=== PATIENT | female | born 1950 | race African-American/Black ===

== ENCOUNTER 2017-07-12 08:55 | Inpatient (IN) | payer BC, OTHER ==
[~2017-07-12] VITALS: Ht 162.6 cm; Wt 69.0 kg
--- NOTE | ~2017-07-12 | H ---
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 He brought her in and she was noted to have an elevated white count and workup ensued. She was diagnosed with pneumococcal meningitis. She was noted to have severe sepsis. She was on a ventilator for approximately a week with respiratory failure and improved, was able to be weaned off the ventilator. She was noted to have pneumonia. Continued on IV antibiotics. She had significant mental status changes with encephalopathy. She was on wrist restraints for a while. She had a code blue on 07/05/2017 when she had self-extubated herself while having a fluoroscopic-guided lumbar puncture. Overall, her mental status changes have started improving. She is on the IV antibiotics. She has had a significant decline as far as her functional mobility, ADL and cognition and has now been admitted for acute in-hospital inpatient rehabilitation. PAST MEDICAL HISTORY: Includes hypertension and exogenous obesity. HABITS: Occasional alcohol use on special occasions. ALLERGIES: PENICILLIN. SOCIAL HISTORY: Lives in a house with her . Premorbid community ambulator without gait aids. Works in a children's daycare. REVIEW OF SYSTEMS: No current complaints of chest pain, shortness of breath or abdominal discomfort. No complaints of extremity pain. PHYSICAL EXAMINATION: GENERAL: A 66-year-old pleasant, overweight -Belarusian female in no obvious distress. VITAL SIGNS: Last recorded temperature 36.7, pulse 78, respirations 20, blood pressure 160/83. NEUROLOGIC: The patient is pleasant, alert. There is a latency to her responses, but she can follow basic one step commands. HEENT: Facies appeared to be symmetric. EOMs are full. CHEST: Sounded clear to auscultation. CARDIOVASCULAR: Sounded regular rate and rhythm. ABDOMEN: Obese, bowel sounds positive, nontender. [facility] [address] [place] [address] HISTORY AND PHYSICAL Name: WILFRIDO FIELDS Room #: 514-P [facility] IN M.R.#: [id number] Admission: 07/12/17 Attend Phys: Eric Kyle MD Discharge: Date of : 54 Report #: [id number] GENITOURINARY AND RECTAL: Deferred. EXTREMITIES: She has functional range of motion of both upper extremities, strength is grade 4-/5. DTRs are trace to 1. Lower extremities functional range of motion with strength grade 4-/5. DTRs are trace to 1. She is transferring with contact guard assistance and needs min assist to ambulate short distances. She does have a delay in her cognitive processing and will tend to defer answers to her . ASSESSMENT: A 66-year-old -[place]ian female with the following problem list: 1. Encephalopathy. 2. Pneumococcal meningitis. 3. Severe sepsis. 4. Respiratory failure that has resolved. 5. Pneumonia. 6. Electrolyte abnormalities. 7. Generalized weakness and debilitation. PLAN: The patient is admitted for acute in-hospital inpatient rehabilitation. From a postadmission physician evaluation perspective, there are no relevant changes since the preadmission screening. Please see the above review of prior and current medical and functional conditions and comorbidities. Please see the patient's previous and current functional status. As far as risk of complications, the patient has multiple medical comorbidities as noted above. Initial plan of care involves the interdisciplinary acute inpatient rehabilitation program with the goal of maximizing the patient's functional independence, so that she can hopefully return back to her prior living situation. Measurable functional goals would be for her to become modified independent with transfers, mobility and ADLs, so that she can return back to the home setting as well as improved cognition. Prognosis is reasonably good with estimated length of stay, probably at least 10 days pending progress. Potential barriers would include her multiple medical comorbidities and decreased functional status. <ELECTRONICALLY SIGNED> By: Eric Kyle MD 07/13/17 1456 [id number] [id number] Eric Kyle MD /PMT
--- NOTE | ~2017-07-12 | PLAN ---
[facility] [place] [address] [place] [address] REHAB UNIT PLAN OF CARE Name: WILFRIDO FIELDS Room #: 514-P ADM IN M.R.#: [id number] Admission: 07/12/17 Attend Phys: Eric Kyle MD Discharge: Date of : 54 Report #: [id number] THIS REPORT FOR: //name// CC: Eric Kyle [facility] physician/PCP DATE OF SERVICE: 07/14/2017 HISTORY: The patient is seen back today in followup. She is in no distress. Last recorded temperature 37.1, pulse 82, respirations 19, blood pressure 137/71. She is alert. She still has mild cognitive deficits with some definite slowing in her responses. Her transfers are contact guard assistance. Gait was 250 feet min assist. Lower extremity dressing is min assist. Continues on the IV antibiotics. ASSESSMENT: 1. Encephalopathy. 2. Pneumococcal meningitis. 3. Severe sepsis, which is improved/resolved. 4. Respiratory failure has resolved. 5. Pneumonia. 6. Generalized weakness and debilitation. PLAN: The overall plan of care is based on the preadmission screen, post-admission physician evaluation and information garnered from therapy assessments. 1. Estimated length of stay is probably at least 7-10 days, pending progress. 2. Medical prognosis is reasonably good. 3. Anticipated interventions includes the interdisciplinary acute inpatient rehabilitation program with the goal of maximizing her functional independence, so she can return back to the home setting. 4. Anticipated functional outcomes would be for the patient to become modified independent with gait ideally without a device, independent with basic ADLs and improved cognition, so that she can return back home. 5. Discharge destination would be back home with her . 6. Expected therapy by discipline includes PT and OT and speech 1 hour per day each five days a week throughout the duration of the acute inpatient rehabilitation stay. The patient still has dysphagia and is on nectar thickened liquids. By: 0928 [id number] Eric Kyle MD /PMT
[~2017-07-12 08:55] MED LIST: LOSARTAN-HCTZ1 EACH PO; PROTONIX40 M1 PO
[2017-07-12] MEDS ORDERED: CEFTRIAXONE2 G1 IVPB (09:32)
[2017-07-12 11:02] VITALS: BP 160/83
[2017-07-12 20:14] VITALS: BP 137/68
[2017-07-13 07:13] LABS: HEMOGLOBIN 10.1 gm/dL (12.0-15.0); MCH 29.9 pg (26.0-34.0); MCHC 32.7 g/dL (28.0-37.0); MCV 91.7 fL (80.0-100.0); RBC 3.38 mil/uL (4.20-5.00); RDW 14.2 % (10.5-14.5); WBC 12.3 thou/uL (4.0-11.0)
[2017-07-13 07:24] LABS: CREATININE 0.7 mg/dL (0.6-1.0); POTASSIUM 4.1 mmol/L (3.5-5.1)
[2017-07-13 08:00] VITALS: BP 131/66
[2017-07-13 19:57] VITALS: BP 153/81
[2017-07-14 04:54] LABS: HEMATOCRIT 30.2 % (37.0-47.0); HEMOGLOBIN 9.8 gm/dL (12.0-15.0); MCH 29.8 pg (26.0-34.0); MCHC 32.3 g/dL (28.0-37.0); MCV 92.2 fL (80.0-100.0); PLATELET COUNT 328 thou/uL (150-400); RBC 3.28 mil/uL (4.20-5.00); RDW 14.7 % (10.5-14.5)
[2017-07-14 04:55] LABS: MANUAL DIFF YES
[2017-07-14 05:06] LABS: ALBUMIN 2.4 g/dL (3.4-5.0); CALCIUM 8.9 mg/dL (8.5-10.1); CREATININE 0.8 mg/dL (0.6-1.0); MAGNESIUM 1.8 mg/dL (1.8-2.4); POTASSIUM 3.7 mmol/L (3.5-5.1); TOTAL BILIRUBIN 0.2 mg/dL (<0.1-1.0); TOTAL PROTEIN 5.9 g/dL (6.4-8.2)
[2017-07-14 06:06] LABS: ABSOLUTE NEUTROPHILS 7.4 thou/uL (1.4-8.2); MYELOCYTES 2 %; TOTAL CELL COUNT 100
[2017-07-14 08:20] VITALS: BP 137/71
[2017-07-14 17:08] LABS: GLYCOHEMOGLOBIN (HGB A1C) 6.2 % (4.8-5.6)
[2017-07-14 20:00] VITALS: BP 154/71
[2017-07-15 05:40] LABS: ABSOLUTE NEUTROPHILS 5.9 thou/uL (1.4-8.2); BASOPHILS 1.3 % (0.0-2.0); HEMATOCRIT 30.4 % (37.0-47.0); HEMOGLOBIN 10.1 gm/dL (12.0-15.0); LYMPHOCYTES 31.5 % (24.0-44.0); MCH 30.4 pg (26.0-34.0); MCHC 33.1 g/dL (28.0-37.0); MCV 91.9 fL (80.0-100.0); PLATELET COUNT 327 thou/uL (150-400); POLYS 56.2 % (36.0-66.0); RDW 14.3 % (10.5-14.5); WBC 10.5 thou/uL (4.0-11.0)
[2017-07-15 05:46] LABS: MANUAL DIFF NO
[2017-07-15 05:57] LABS: CALCIUM 9.4 mg/dL (8.5-10.1); CREATININE 0.8 mg/dL (0.6-1.0); POTASSIUM 3.9 mmol/L (3.5-5.1)
[2017-07-15 07:30] VITALS: BP 132/69
[2017-07-15 20:10] VITALS: BP 145/77
[2017-07-16 06:32] LABS: ABSOLUTE NEUTROPHILS 5.6 thou/uL (1.4-8.2); BASOPHILS 1.7 % (0.0-2.0); EOSINOPHILS 0.9 % (0.0-3.0); HEMATOCRIT 31.4 % (37.0-47.0); HEMOGLOBIN 10.2 gm/dL (12.0-15.0); LYMPHOCYTES 28.7 % (24.0-44.0); MCH 30.2 pg (26.0-34.0); MCHC 32.6 g/dL (28.0-37.0); MCV 92.9 fL (80.0-100.0); MONOCYTES 9.9 % (1.0-8.0); PLATELET COUNT 330 thou/uL (150-400); POLYS 58.8 % (36.0-66.0); RBC 3.38 mil/uL (4.20-5.00); RDW 14.9 % (10.5-14.5); WBC 9.6 thou/uL (4.0-11.0)
[2017-07-16 06:36] LABS: MANUAL DIFF NO
[2017-07-16 06:41] LABS: CALCIUM 9.4 mg/dL (8.5-10.1); CREATININE 0.8 mg/dL (0.6-1.0)
[2017-07-16 20:00] VITALS: BP 180/90
[2017-07-16 20:02] VITALS: BP 133/75
[2017-07-17 06:14] LABS: ABSOLUTE NEUTROPHILS 5.8 thou/uL (1.4-8.2); EOSINOPHILS 1.2 % (0.0-3.0); HEMATOCRIT 32.1 % (37.0-47.0); HEMOGLOBIN 10.5 gm/dL (12.0-15.0); LYMPHOCYTES 27.4 % (24.0-44.0); MCH 30.2 pg (26.0-34.0); MCHC 32.6 g/dL (28.0-37.0); MCV 92.5 fL (80.0-100.0); MONOCYTES 8.9 % (1.0-8.0); PLATELET COUNT 326 thou/uL (150-400); POLYS 60.5 % (36.0-66.0); RBC 3.47 mil/uL (4.20-5.00); RDW 14.3 % (10.5-14.5); WBC 9.6 thou/uL (4.0-11.0)
[2017-07-17 06:15] LABS: MANUAL DIFF NO
[2017-07-17 08:15] VITALS: BP 134/73
[2017-07-17 20:35] VITALS: BP 130/66
[2017-07-18 08:20] VITALS: BP 120/74
[2017-07-18 20:10] VITALS: BP 150/73
[2017-07-19 06:27] LABS: ABSOLUTE NEUTROPHILS 4.2 thou/uL (1.4-8.2); BASOPHILS 0.5 % (0.0-2.0); EOSINOPHILS 1.9 % (0.0-3.0); HEMATOCRIT 32.2 % (37.0-47.0); HEMOGLOBIN 10.6 gm/dL (12.0-15.0); LYMPHOCYTES 34.1 % (24.0-44.0); MCH 30.4 pg (26.0-34.0); MCV 92.2 fL (80.0-100.0); MONOCYTES 7.6 % (1.0-8.0); PLATELET COUNT 297 thou/uL (150-400); POLYS 55.9 % (36.0-66.0); RDW 14.3 % (10.5-14.5); WBC 7.5 thou/uL (4.0-11.0)
[2017-07-19 06:31] LABS: MANUAL DIFF NO
[2017-07-19 06:37] LABS: CALCIUM 9.1 mg/dL (8.5-10.1); CREATININE 0.9 mg/dL (0.6-1.0); POTASSIUM 4.1 mmol/L (3.5-5.1)
[2017-07-19] MEDS ORDERED: COLACE100 MG PO (08:34)
[2017-07-19] MEDS ORDERED: CLARITIN10 MG PO (08:34)
[2017-07-19] MEDS ORDERED: FLONASE 0.05%50 MCG NASAL (08:34)
[2017-07-19] MEDS ORDERED: TYLENOL325 MG PO (08:34)
[2017-07-19] MEDS ORDERED: PROTONIX40 M1 PO (08:34)
[2017-07-19 08:40] VITALS: BP 128/78
[2017-07-19 10:36] VITALS: BP 150/73
[2017-07-19 11:15] VITALS: BP 150/73
[2017-07-19 11:56] VITALS: BP 150/73
== END 2017-07-19 11:50 | disposition home health service (06) | DRG 94 ==
LOC: ENTRNSPT 07-19 11:34 → EDTRNSPTSTS 07-19 11:37
PROVIDERS: Family Medicine; Nurse Practitioner; Physical Medicine & Rehabilitation; Specialist
DX: G00.1 Pneumococcal meningitis (principal); G93.40 Encephalopathy, unspecified; J18.9 Pneumonia, unspecified organism; J96.90 Respiratory failure, unspecified, unspecified whether with hypoxia or hypercapnia; H91.90 Unspecified hearing loss, unspecified ear; R53.81 Other malaise; I10 Essential (primary) hypertension; E66.09 Other obesity due to excess calories; E87.8 Other disorders of electrolyte and fluid balance, not elsewhere classified; R73.9 Hyperglycemia, unspecified; J30.2 Other seasonal allergic rhinitis; Z68.26 Body mass index [BMI] 26.0-26.9, adult; Z88.0 Allergy status to penicillin
CPT/HCPCS: 10112

== ENCOUNTER → 2017-08-15 | Outpatient (CLI) | payer OTHER ==
[~2017-08-15] MED LIST changes: +ASPIR 8181 MG PO; +CEFTRIAXONE2 G1 IVPB; +CLARITIN10 MG PO; +COLACE100 MG PO; +FLONASE 0.05%50 MCG NASAL; +TYLENOL325 MG PO
== END ==
LOC: RAD 08:48
DX: K21.9 Gastro-esophageal reflux disease without esophagitis (principal); R05 Cough; H90.3 Sensorineural hearing loss, bilateral; R49.0 Dysphonia; R09.89 Other specified symptoms and signs involving the circulatory and respiratory systems; Z91.89 Other specified personal risk factors, not elsewhere classified; Z86.61 Personal history of infections of the central nervous system

== ENCOUNTER 2018-11-12 05:46 | Inpatient (IN) | payer OTHER ==
[2018-11-12] VITALS (23 sets, daily range): BP systolic 139–176; BP diastolic 65–101
[~2018-11-12] VITALS: Ht 160 cm; Wt 73.5 kg
[2018-11-12 07:26] LABS: HEMATOCRIT 39.4 % (37.0-47.0); HEMOGLOBIN 13.2 gm/dL (12.0-15.0); MCH 30.3 pg (26.0-34.0); MCHC 33.4 g/dL (28.0-37.0); MCV 90.7 fL (80.0-100.0); PLATELET COUNT 235 thou/uL (150-400); RBC 4.35 mil/uL (4.20-5.00); RDW 13.2 % (10.5-14.5)
[2018-11-12 07:37] LABS: ANION GAP 16 mmol/L (7-16); BUN 19 mg/dL (7-18); CALCIUM 10.1 mg/dL (8.5-10.1); CHLORIDE 100 mmol/L (98-107); CO2 23 mmol/L (21-32); CREATININE 1.5 mg/dL (0.6-1.0); GLUCOSE 284 mg/dL (74-106); POTASSIUM 3.1 mmol/L (3.5-5.1); SODIUM 139 mmol/L (136-145)
[2018-11-12 07:38] LABS: URINE BILIRUBIN NEGATIVE (Negative); URINE BLOOD NEGATIVE (Negative); URINE CLARITY CLEAR; URINE COLOR YELLOW; URINE GLUCOSE-RANDOM* 1+ (Negative); URINE KETONES NEGATIVE (Negative); URINE LEUKOCYTES-REFLEX NEGATIVE (Negative); URINE NITRITE-REFLEX NEGATIVE (Negative); URINE PROTEIN (DIPSTICK) NEGATIVE (Negative); URINE UROBILINOGEN 0.2 E.U./dl (0.2-1.0)
[2018-11-12 07:46] LABS: ALBUMIN 3.9 g/dL (3.4-5.0); DIRECT BILIRUBIN < 0.1 mg/dL (<0.1-0.3); SGOT 17 U/L (15-37); SGPT 27 U/L (30-65); TOTAL BILIRUBIN 0.4 mg/dL (<0.1-1.0); TOTAL PROTEIN 7.5 g/dL (6.4-8.2); TROPONIN-I <0.06 ng/mL (<0.06)
[2018-11-12 07:56] LABS: AMP/METHAMP Negative (Negative); BARBITURATES Negative (Negative); BENZODIAZEPINES Negative (Negative); COCAINE Negative (Negative); METHADONE Negative (Negative); OPIATES Negative (Negative); PCP Negative (Negative)
[2018-11-12 08:02] LABS: ABSOLUTE NEUTROPHILS 27.2 thou/uL (1.4-8.2); ANISOCYTOSIS SLIGHT
[2018-11-12 10:11] LABS: APTT 30.3 Seconds (24.5-32.8); PROTIME 10.4 Seconds (9.3-11.4)
--- NOTE | 2018-11-12 11:45 | NUR ---
PT AN ADMIT RULE OUT MENINGITIS AND ALTERED MENTAL STATUS. CONSULTED INFECTIOUS DISEASE. BLOOD CULTURES OBTAINED AND ANTIBIOTICS TREATMENT STARTED TEMP IS 97.7. HISTORY OF MJ USE. REPORTS HEADACHE AND RESTLESS AND BROUGHT HER IN TO BE SEEN. HISTORY OF MENINGITIS APROXIMATELY A YEAR AGO HE REPORTS. MONSON TO DD. YELLOW URINE. VS STABLE. ON ROOM AIR . WENT DOWN FOR A SPINAL TAP BEFORE ICU ADMISSION STATUS. SPOUSE AT BEDSIDE AND PLAN OF CARE DISCUSSED WITH SPOUSE. WILL CONTINUE TO ASSESS AND MONITOR PER NURSING
[2018-11-12 11:50] LABS: CSF CLARITY CLOUDY; CSF COLOR PALE CREAM; VOLUME 6.5 ml
[2018-11-12 12:23] LABS: CSF RBC 3207 /mm3
[2018-11-12 12:27] LABS: CSF GLUCOSE < 1 mg/dL (40-70); CSF PROTEIN 718 mg/dL (15-45)
[2018-11-12 12:38] LABS: CSF EOSINOPHILS 0 %; CSF LYMPHOCYTES 13 %; CSF POLYS 81 %
[2018-11-12 12:41] LABS: CSF WBC 23359 /mm3 (0-10)
--- NOTE | 2018-11-12 17:05 | EKG ---
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: [facility] : 1950 Requested By: Alexandre Ann Order Number: [id number] MD: Chuck Ward Measurements Intervals [place] Rate: 84 P: 76 NC: 146 QRS: -15 QRSD: 78 T: 65 QT: 383 QTc: 453 Interpretive Statements Sinus rhythm Multiple premature complexes, vent & supraven Borderline left axis deviation Nonspecific ST and T wave abnormality Compared to ECG 08/03/2017 14:13:54 Ventricular and supraventricular complexes are now present Electronically Signed On 11-12-2018 17:04:56 CDT by Chuck Ward [email or web address] ��������������������������������������������� <ELECTRONICALLY SIGNED> ���������������������������������������� By: Chuck Ward MD, [facility] ��������������������������������������������� 11/12/18 1704 0655 0655 Chuck Ward MD, [facility] /EPI
[2018-11-12 17:07] LABS: CALCIUM 8.8 mg/dL (8.5-10.1); CREATININE 1.1 mg/dL (0.6-1.0); POTASSIUM 3.4 mmol/L (3.5-5.1)
--- NOTE | 2018-11-12 17:34 | NUR ---
CONSULTED TO PLACE PICC FOR A PATIENT NEEDING ACCESS. ON ARRIVAL PATIENT WAS EXTREMLY RESTLES AND UNABLE TO LAY STILL FOR PROCEDURE. NO NURSE AVAILABLE TO ASSIST. UNABLE TO PLACE PICC AT THAT TIME. PATIENT 1 HOUR LATER WAS GIVEN ATIVAN AND PICC WAS PLACED PER HOSPITAL POLICY AFTER A BEDSIDE TIMEOUT COMPLETED. PICC WAS TRIMMED TO 45CM AND ADVANCED WITHOUT DIFFICULTY LINE EXTERNAL WAS 3CM. A STAT CHEST XRAY CONFIRMED LINE TO BE IN GOOD POSITION. LINE RELEASED FOR USE.
--- NOTE | 2018-11-12 18:10 | NUR ---
PT IS ALERT BUT CONFUSED AND RESTLESS. HAS ATIVAN PRN FOR ANXIETY. REST AFTER MEDICATION GIVEN. BILATERAL WRIST RESTRAINTS. MONSON TO DD. LUNGS ARE CLEAR. FAMILY AT BEDSIDE FOR SUPPORT. VS STABLE SINUS RHYTHM ONT HE MONITOR. PICC LINE PLACED TODAY AND ANTIBIOTICS GIVEN ORDERED. ENT SEEN PT THIS EVENING. INFECTIOUS DISEASE SEEM PT REMAINS IN ISOLATION FOR MENINGITIS. WILL CONTINUE TO ASSESS AND MONITOR PER NURSING
[2018-11-13] VITALS (20 sets, daily range): BP systolic 115–161; BP diastolic 54–113
[2018-11-13 05:21] LABS: HEMATOCRIT 35.7 % (37.0-47.0); HEMOGLOBIN 12.1 gm/dL (12.0-15.0); MCH 30.6 pg (26.0-34.0); MCHC 33.7 g/dL (28.0-37.0); MCV 90.7 fL (80.0-100.0); PLATELET COUNT 195 thou/uL (150-400); RBC 3.94 mil/uL (4.20-5.00); RDW 13.5 % (10.5-14.5); WBC 35.8 thou/uL (4.0-11.0)
[2018-11-13 05:27] LABS: ALBUMIN 2.7 g/dL (3.4-5.0); CALCIUM 8.8 mg/dL (8.5-10.1); CREATININE 0.9 mg/dL (0.6-1.0); POTASSIUM 3.5 mmol/L (3.5-5.1); TOTAL BILIRUBIN 0.2 mg/dL (<0.1-1.0); TOTAL PROTEIN 6.4 g/dL (6.4-8.2)
--- NOTE | 2018-11-13 07:23 | NUR ---
PT OPENS HER EYES SPONTANEOUSLY WAS ABLE TO STATE HER NAME THIS MORNING BUT WITH SOME DIFFICULTY SPEAKING, PT APPEARS CONFUSED, AND IS OCCASIONALLY RESTLESS IN BED, PICKING ON LINES/CORDS, RESTRAINTS AND ISOLATION MAINTAINED. VITALS STABLE AND AFEBRILE. BLOOD SUGARS RANGING 150'S. PT NPO, IVF INFUSING, URINE OUTPUT ADEQUATE.
--- NOTE | 2018-11-13 14:15 | HC ---
[facility] [address] CONSULTATION Name: WILFRIDO FIELDS Room #: 243-P [facility] IN M.R.#: [id number] Admission: 11/12/18 ������������������ Attend Phys: Joshua Henry MD Discharge: ������������������ Date of : 54 Report #: [id number] THIS REPORT FOR: //name// CC: Ryanne Henry DATE OF SERVICE: 11/12/2018 INFECTIOUS DISEASES CONSULTATION REASON FOR CONSULTATION: Encephalopathy, leukocytosis, suspected meningitis. HISTORY OF PRESENT ILLNESS: The patient is a 68-year-old that presented to the Emergency Room early this morning with acute onset of headache, nausea, vomiting, which progressed to encephalopathy over about 5 hours. I treated her in June 2017 with strep pneumoniae meningitis. Imaging studies showed some chronic sinusitis changes, but no evidence of bony abnormality. After an extended hospital stay, she improved and was discharged to home and resumed her normal activities of daily living. Yesterday, she went out with her friends for [employer] and [employer]. When she came back, she was complaining of nausea, vomiting and headache. This persisted through the night and the patient became encephalopathic. Therefore, called EMS and she was brought into the Emergency Room. She has chronic sinus complaints and frequent upper respiratory tract infection symptoms. No persistent rhinorrhea. No chronic headaches. No recent pneumonias or other illness identified. She has had no travel. In 2017, her HIV was negative. Quantitative immunoglobulins were normal. The patient does use marijuana and drinks alcohol, but no other street drugs. She has had no trauma. No other surgical interventions. ALLERGIES: SULFA, PENICILLIN, tolerated cephalosporins. MEDICATIONS: Losartan and hydrochlorothiazide, Flonase. PAST MEDICAL AND SURGICAL HISTORY: Hypertension, cholecystectomy, sinus surgery, frequent upper respiratory tract infections, hysterectomy, meningitis. FAMILY HISTORY: Noncontributory. SOCIAL HISTORY: Smokes cigarettes, marijuana, weekly alcohol intake. No tuberculosis exposure or HIV risks. REVIEW OF SYSTEMS: The patient was unable to communicate. History was gleaned from her who noticed no rash or adenopathy. She has had no visual changes. There has been no cough or sputum production, chest pain, palpitations. No bloody emesis. No diarrhea. No abdominal pain. No dysuria or frequency, flank or back pain. A 10-point review of system was negative [address] [address] CONSULTATION Name: WILFRIDO FIELDS Room #: [facility] IN ..#: [id number] Admission: 11/12/18 ������������������ Attend Phys: Joshua Henry MD Discharge: ������������������ Date of : 54 Report #: [id number] other than what is described above. PHYSICAL EXAMINATION: VITAL SIGNS: The patient was in the Intensive Care Unit. Temp was 98.7, pulse 104, respiratory rate 20, blood pressure 156/68. She was with a nasal trumpet in her right naris. GENERAL: She was arousable, but would not converse. She moved all extremities. SKIN: Without rash or decubitus. No palpable adenopathy. HEENT: Eyes: Without scleral icterus. Mild conjunctivitis. Nasal trumpet in place on the right with no clear rhinorrhea identified. Mouth without mucositis. NECK: 1+ nuchal rigidity. No palpable masses or thyromegaly. Carotid pulses were normal. LUNGS: Clear. HEART: Regular, without murmur, gallop or rub. ABDOMEN: Mildly obese, soft, no hepatosplenomegaly or mass. No appreciable tenderness noted. She had positive bowel sounds. External genitalia without lesion and had indwelling Eldridge catheter. EXTREMITIES: Without clubbing, cyanosis or edema. Cranial nerves appeared intact. Strength in the upper and lower extremities appeared normal. Did not cooperate with exam any further than this. LABORATORY DATA: Hemoglobin 13.2; platelet count 235,000; white count 32,000 with 71% segs, 14% bands. Sedimentation rate was 15. INR 1. Lactate 5. Sodium 139, potassium 3.1, bicarbonate 23, creatinine is 1.5. AST 17, ALT 27, bilirubin and alk phos were normal. Urinalysis was negative. Urine drug screen with positive THC. Lumbar puncture, 8 mL of cloudy fluid. Await CSF examination. CT scan of the head was negative with paranasal sinuses and mastoid air cells unremarkable. Chest x-ray was clear. IMPRESSION: 1. A 68-year-old with suspected bacterial meningitis. With her history of previous sinus surgery, I would be concerned about a possible defect in the cribriform plate. After further discussion with the patient's , it was noted that there was concern about what he described as brain tissue, described pathologically at the time of surgery, but this he reports was further evaluated by consultative pathology report, which was negative. Seems less likely herpetic or cryptococcal infection. The patient has encephalitis, encephalopathy. 2. Hypertension. 3. Acute kidney injury. 4. Leukocytosis. RECOMMENDATION: We will continue with broad antibiotic coverage. Check blood [address] [place] [address] CONSULTATION Name: WILFRIDO FIELDS Room #: 243-P ADM IN M.R.#: [id number] Admission: 11/12/18 ������������������ Attend Phys: Joshua Henry MD Discharge: ������������������ Date of : 54 Report #: [id number] cultures. ENT evaluation. MRI scan, full ICU support, urine and CSF antigens, broad cultures, HSV PCR. ��������������������������������������������� <ELECTRONICALLY SIGNED> ���������������������������������������� By: Paul Choe MD ��������������������������������������������� 11/13/18 1415 1229 2308 Paul Choe MD /nt
--- NOTE | 2018-11-13 14:35 | HC ---
[facility] [place] [address] CONSULTATION Name: WILFRIDO FIELDS Room #: 243-P ADM IN M.R.#: [id number] Admission: 11/12/18 ������������������ Attend Phys: Joshua Henry MD Discharge: ������������������ Date of : 54 Report #: [id number] THIS REPORT FOR: //name// CC: Ryanne Henry DATE OF SERVICE: 11/12/2018 SURGEON: Jesus Leggett MD REASON FOR CONSULTATION: Meningitis, recurrent. HISTORY OF PRESENT ILLNESS: The patient is a 68-year-old black female admitted through the Emergency Department last evening after being out with her girlfriend. They had been eating tacos and drinking margaritas. She came home. Her was at home, and prior to this, she seemed to be in her normal state of health. At about 9:00 last evening, she was answering questions, but acted lethargic. She went to bed as normal, but when the woke up this morning, he noticed that she was disoriented and not answering basic questions and complaining of headache. The patient had been vomiting the previous night and had attributed this to the tacos and margaritas that she had for dinner. She was brought by EMS to the Emergency Department and then admitted with a clinical suspicion of meningitis. The patient had a similar presentation a year ago with altered mental status, fever and was diagnosed with streptococcal meningitis, these notes in the health record are reviewed. The patient was noted to have a significant leukocytosis. Drug screen positive for marijuana and a lumbar puncture was done. This showed cloudy CSF with a very high white count and elevated protein consistent with meningitis. In addition, her lactic acid was critically high at 5.0. The patient has had a CT of the head done, which I have reviewed personally today and compared to a previous CT done in June 2017. The CT done today showed no evidence of any mucosal thickening or air fluid level in the sinuses or mastoid. The brain parenchyma showed no significant mass effect or suspicious masses or evidence of encephalocele. Compared to a scan in June 2017, the previous mucosal thickening in the sinuses has cleared and these seem totally normal now. The patient has evidence of previous sinus surgery both on these films from June 2017 and 2018. The patient is pending an MRI of the brain. I was able to review a previous MRI of the head done without contrast from 2016. This was felt to be normal except for the findings of some mucoperiosteal thickening in the maxillary and ethmoid sinuses, slightly worse on the right, mastoids were clear at that exam. This seems improved from that examination. I was able to get history from the patient's sister and . The patient is known to me from a longstanding history of chronic sinusitis. She underwent endoscopic sinus surgery in September 2014, which [place] [address] CONSULTATION Name: WILFRIDO FIELDS Room #: 243-P [facility] IN M.R.#: [id number] Admission: 11/12/18 ������������������ Attend Phys: Joshua Henry MD Discharge: ������������������ Date of : 54 Report #: [id number] Otherwise, I do not have these records to review. PAST MEDICAL HISTORY: Significant for meningitis, pneumococcal sepsis, hypertension, history of laparoscopic cholecystectomy, history of chronic tobacco abuse, history of chronic marijuana use. MEDICATIONS: Reviewed through the electronic health record. ALLERGIES: INCLUDE SULFAMETHOXAZOLE AND PENICILLIN. FAMILY HISTORY: In discussion with her sister, she does not have any significant history of chronic otitis media as a child or adult. Family history is otherwise negative. SOCIAL HISTORY: She is with a supportive family. She is an every day smoker, about 1/2 a pack a day. She does use alcohol. She does use marijuana. REVIEW OF SYSTEMS: Cannot be obtained, the patient is not responsive. PHYSICAL EXAMINATION: GENERAL: Shows a well-developed, 68-year-old female, appearing her stated age. HEENT: Otologic exam shows some mild cerumen present I can see around this. Tympanic membranes appear pearly, intact with no evidence of middle ear effusion, erythema. There is no tenderness over the mastoid and no swelling. Nasal exam is dry, septum is in the midline. No evidence of polyposis. Oral cavity: The patient would not tolerate this. Limited examination was done with the tongue blade with apparent normal tongue and no swelling in floor of mouth. NECK: No adenopathy or other masses. ASSESSMENT: 1. 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 The patient has a history of chronic sinusitis and a history of previous sinus surgery. Concern in this scenario would always be for the source of infection through the skull base, either through the temporal bone or sinuses. Review of MRI and CT from [address] from this admission do not show any obvious infection. Ideally, the patient will be able to tolerate an MRI best done with contrast, if possible; however, the patient has some elevation of BUN and creatinine. This should be followed with a fine-cut CT axial and coronal of the skull base to include the temporal bone and sinuses to assess for any encephalocele or evidence of possible cerebrospinal fluid leak. This is a very difficult thing to identify and find. 2. Sepsis with elevated lactate dehydrogenase and leukocytosis, currently on aggressive support and antibiotics. 3. Acute kidney injury, limiting the ability to use contrast. 4. Hypokalemia. [facility] [place] [address] CONSULTATION Name: WILFRIDO FIELDS Room #: 243-P ADM IN M.R.#: [id number] Admission: 11/12/18 ������������������ Attend Phys: Joshua Henry MD Discharge: ������������������ Date of : 54 Report #: [id number] 5. Chronic tobacco abuse. 6. Chronic marijuana use. 7. Hypertension. 8. Gastroesophageal reflux disease. PLAN: 1. Deferral to the patient's ICU team and Infectious Disease on recommendations for antibiotics, cultures are pending from the CSF. 2. Aggressive workup to assess skull base for any evidence of encephalocele or meningocele. 3. The patient would not tolerate a more formal examination of the nose today due to non-cooperation. I appreciate the consultation. We will plan to follow along with you. ��������������������������������������������� <ELECTRONICALLY SIGNED> ���������������������������������������� By: Jesus Leggett MD ��������������������������������������������� 11/13/18 1435 1729 0105 Jesus Leggett MD /nt
[2018-11-13 15:24] LABS: HSV PCR SOURCE CSF
[2018-11-14] VITALS (19 sets, daily range): BP systolic 115–164; BP diastolic 54–84
--- NOTE | 2018-11-14 17:07 | NUR ---
PT ADMITTED RELATED TO BACTERIAL MENINGITIS. CM REVIEWED CHART AND SPOKE WITH CARE TEAM. CM MET WITH PT AND SPOUSE AT BEDSIDE THIS DAY. PT IS A&O X4. CM ROLE INTRODUCED. PT AND SPOUSE INDICATED THEY RESIDE IN A RAISED RANCH STYLE HOUSE WITH 7 STEPS TO ENTER AND 13 STEPS INSIDE. 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 PT AND SPOUSE INDICATED THAT PT HAD GONE TO 5N ACUTE INPATIENT REHAB IN THE PAST AND HAD DISHCARGE HOME WITH [facility]. THEY INDICATED THEY ANTICPATE PT RETURNING HOME ONCE MEDICALLY STABLE. CM TO FOLLOW INDICATED WITH DC PLANNING.
[2018-11-15] VITALS (15 sets, daily range): BP systolic 122–147; BP diastolic 53–81
[2018-11-15 04:27] LABS: POTASSIUM 3.9 mmol/L (3.5-5.1)
[2018-11-15 04:41] LABS: HEMATOCRIT 32.7 % (37.0-47.0); MCH 30.6 pg (26.0-34.0); MCHC 33.6 g/dL (28.0-37.0); MCV 91.2 fL (80.0-100.0); RBC 3.58 mil/uL (4.20-5.00); RDW 13.8 % (10.5-14.5)
[2018-11-15 04:55] LABS: WBC 15.6 thou/uL (4.0-11.0)
--- NOTE | 2018-11-15 05:34 | NUR ---
Pt remains stable in this shift. Resting well t/o the night. Report AUGUSTINE has been slightly better this am. HR was in in mid 40's to 50's when she sleeps. Denies of any CP or chest discomfort. Afebrile in this shift. Continue to make some progress toward goals.
[2018-11-15 18:05] LABS: HSV 1 DNA Negative (Negative); HSV 2 DNA Negative (Negative)
--- NOTE | 2018-11-15 18:11 | NUR ---
MED/SURG/TELE, VSS, UP TO THE CHAIR BUT A LITTLE UNSTEAD ON HER FEET. PT WILL SEE HER TOMORROW, A/OX4, SALINE LOVKED, MONSON REMOVED, CT TOMORROW, WILL CONTINUE TO MONITOR POC
--- NOTE | 2018-11-16 03:15 | NUR ---
ASSUMED CARE OF PATIENT AT 1900. VSS, AFEBRILE. UP TO CHAIR UNTIL READY FOR BED. C/O PICC BOTHERING HER, CXR OBTAINED TO CONFIRM PLACEMENT. IV ANTIBIOTICS INFUSED WITH NO ISSUES. VERY WEAK WHEN UP TO USE THE BSC. RESTING COMFORTABLY AT THIS TIME. PROGRESSING TOWARDS POC GOALS.
[2018-11-16 04:06] VITALS: BP 148/67
[2018-11-16 04:34] LABS: CALCIUM 8.2 mg/dL (8.5-10.1); POTASSIUM 3.7 mmol/L (3.5-5.1)
[2018-11-16 04:42] LABS: HEMATOCRIT 34.9 % (37.0-47.0); HEMOGLOBIN 11.6 gm/dL (12.0-15.0); MCH 30.1 pg (26.0-34.0); MCHC 33.2 g/dL (28.0-37.0); MCV 90.7 fL (80.0-100.0); RBC 3.85 mil/uL (4.20-5.00); RDW 13.4 % (10.5-14.5); WBC 13.5 thou/uL (4.0-11.0)
[2018-11-16 08:00] VITALS: BP 151/58
[2018-11-16 16:30] VITALS: BP 148/79
--- NOTE | 2018-11-16 17:36 | NUR ---
PT TRANSFERRED OUT OF ICU TO 3W RM 364. WORKED WITH THERAPIES TODAY AND NEEDS REHAB AT PRESENT. 5N ADMISSIONS SPOKE WITH PT AND KASHMIR'Nataliia AND PT AND SPOUSE AGREEABLE TO 5N STAY IF ABLE TO OBTAIN INSURANCE AUTH. 5N SUBMITTED AUTH REQUEST TODAY. WILL FOLLOW THAI PRITCHARD FOR APPROPRIATE LEVEL OF REHAB FOR DC.
--- NOTE | 2018-11-16 18:02 | NUR ---
PATIENT ALERT AND ORIENTED X4, NO COMPLAINTS OF PAIN. ON ROOM AIR. TOLERATING DIET. BLOOD SUGAR MONITORED. UP WITH MINIMAL ASSISTANCE TO THE COMMODE. NO SIGNS OF ACUTE DISTRESS NOTED AT THIS TIME. REPORT CALLED TO ONCOMING NURSE. PATIENT TRANSFERRED TO [facility].
--- NOTE | 2018-11-16 18:05 | NUR ---
Patient transferred from ICU room to room 364 this evening around 1730. Patient is alert and oriented x4, pleasant. Denies pain, nausea, SOA. SB on telemetry. Spouse at bedside with patient. Oriented to new room and call light. Encouraged to call before ambulating, verbalize understanding. Fall precautions in place. Patient currently eating dinner. No other complaints at this time. Continue to monitor.
[2018-11-16 19:47] VITALS: BP 161/76
[2018-11-16 20:22] VITALS: BP 161/76
[2018-11-17 04:39] VITALS: BP 167/71
--- NOTE | 2018-11-17 07:35 | NUR ---
Pt. has slept well during the night. Denies headache or any pain. Afebrile. No confusion . Tolerating room air well. Up with assist to bathroom. She calls appropriately. Bed alarm on for safety. Making progress towards care plan goals.
[2018-11-17 07:47] VITALS: BP 156/80
[2018-11-17 07:49] LABS: HEMATOCRIT 35.7 % (37.0-47.0); HEMOGLOBIN 11.8 gm/dL (12.0-15.0); MCH 30.2 pg (26.0-34.0); MCHC 33.1 g/dL (28.0-37.0); MCV 91.4 fL (80.0-100.0); RBC 3.91 mil/uL (4.20-5.00); RDW 13.4 % (10.5-14.5); WBC 16.4 thou/uL (4.0-11.0)
[2018-11-17 08:00] LABS: CALCIUM 8.5 mg/dL (8.5-10.1); CREATININE 0.9 mg/dL (0.6-1.0); POTASSIUM 3.9 mmol/L (3.5-5.1)
--- NOTE | 2018-11-17 15:11 | NUR ---
Assumed care of patient at 0700. Alert and oriented x4, forgetful at times. Vitals stable. Complaints of mild headache this morning, treated with Tylenol with good effect. Home medications restarted. Patient up with SBA and gait belt. Fall precautions in place. Calls appropriately. Sat up in chair this morning and most of afternoon. Now back in bed and sleeping. Spouse at bedside this afternoon. Right PICC line intact. Progressing towards POC. Will continue to monitor.
[2018-11-17 18:03] VITALS: BP 150/74
[2018-11-17 19:48] VITALS: BP 167/83
[2018-11-18 03:15] VITALS: BP 164/66
--- NOTE | 2018-11-18 04:31 | NUR ---
Pt. slept intermittently during the night. Denies any pain. Tolerating room air well. Up with assist to bathroom. Making progress towards care plan goals.
[2018-11-18 04:58] LABS: HEMATOCRIT 34.3 % (37.0-47.0); HEMOGLOBIN 11.6 gm/dL (12.0-15.0); MCH 30.4 pg (26.0-34.0); MCHC 33.8 g/dL (28.0-37.0); MCV 90.1 fL (80.0-100.0); PLATELET COUNT 232 thou/uL (150-400); RDW 13.3 % (10.5-14.5); WBC 16.9 thou/uL (4.0-11.0)
[2018-11-18 05:04] LABS: CALCIUM 8.2 mg/dL (8.5-10.1); MAGNESIUM 2.1 mg/dL (1.8-2.4)
[2018-11-18 05:45] LABS: ABSOLUTE NEUTROPHILS 13.5 thou/uL (1.4-8.2)
[2018-11-18 08:32] VITALS: BP 152/120
--- NOTE | 2018-11-18 16:01 | NUR ---
Assumed care of patient at 0700. BP high this morning, but received scheduled BP meds. Otherwise, VSS. Denies pain today. Alert and oriented x4. Pleasant. Up with SBA to bathroom. Voiding quantity sufficient. Up in chair most of shift. Sitting with lots of visitors and spouse at bedside throughout afternoon. Progressing towards POC. Will continue to monitor.
[2018-11-18 16:10] VITALS: BP 138/70
[2018-11-18 20:15] VITALS: BP 163/78
[2018-11-18 23:55] VITALS: BP 154/77
[2018-11-19 04:00] VITALS: BP 146/70
--- NOTE | 2018-11-19 06:17 | NUR ---
RESTING QUIETLY TONIGHT. SHE CALLS AP[facility] FOR ASSIST OUT OF BED. PROGRESSING TOWARD DISCHARGE GOALS. DENIES PAIN. CONTINUES ON IV ANTIBIOTICAS
[2018-11-19 07:56] VITALS: BP 155/73
--- NOTE | 2018-11-19 10:28 | NUR ---
Nutrition: pt admitted with bacterial meningitis and seen due to LOS. Chart reviewed. Pt voices eating very little of meals although observed she had ate most of her breakfast. Provided some food preferences to RD. Pt unsure of UBW. No weight loss over admit. Regular diet, explained how to order from alternative menu if desired. Pt voiced understanding. Consider low risk.
--- NOTE | 2018-11-19 15:39 | NUR ---
AAOX3 VERY PLEASANT AND COOPERATIVE. DENIES PAIN OR DISCOMFORT. UP TO BR WITH SBA WITH WALKER. VOIDS WITHOUT DIFFICULTY. GOOD APPETITE. SPOUSE AT BEDSIDE MOST OF DAY. RIGHT UPPER ARM TRIPLE LUMEN PICC INTACT WITH DRY DRESSING. REMAINS IN SR. RESP EVEN AND UNLABORED. GOOD COLOR. NO EDEMA.
--- NOTE | 2018-11-19 16:11 | NUR ---
ON-GOING ASSESSMENT: CM SPOKE WITH BEDSIDE RN WHO STATES SHE SPOKE WITH DR. FANG WHO STATES [facility] WOULD LIKE TO FOLLOW UP WITH PATIENT BUT AFTER SHE IS CLOSER TO BEING DONE WITH ANBX AND NOT LIKELY FOR ANOTHER 4-6 WEEKS. CM SPOKE WITH DR. HURA. MnaN STATING PATIENT IS TOO HIGH LEVEL FOR THEM AND RECOMMENDING HOME. CM DISCUSSED THIS WITH PATIENT AND THE NEED FOR HOME IV ANBX. PT REPORTS TO GO HOME WITH HH AND IV ANBX RATHER THEN DO OUTPATIENT INFUSION. CM DISCUSSED INFUSION COMPANIES AND PT DOES NOT HAVE A PREFERENCE. CM SENT REFERRAL TO [facility]. [facility] TO COME EVAL PATIENT AND CHECK INSURANCE COVERAGE. PT REPORTS SHE HAS HAD [facility] IN THE PAST AND PREFERS TO USE THEM AGAIN. PLANS ARE FOR PATIENT TO LIKELY DISCHARGE HOME TOMORROW ONCE INFUSION COMPANY CHECKS INSURANCE COVERAGE FOR HOME IV ANBX. CM WILL CONTINUE TO FOLLOW TO ASSIST NEEDED.
[2018-11-19 20:45] VITALS: BP 138/68
--- NOTE | 2018-11-19 22:00 | NUR ---
Denies pain. Tolerating room air well.Up with SBA to bathroom. Bed alarm on. Afebrile. PATTERN CHART WRITER called and got an order to [facility] tele and may transfer. Transferred to [facility] with all her belongings.
--- NOTE | 2018-11-19 23:09 | NUR ---
Assumed pt. care at 2230. Pt A&Ox4. Orientated to [facility]room 220. Denies pain or discomfort, at this time. No s/s of acute distress noted. Pt. assisted into bed, by this medical writer. Pt. sleeping w/ call light/desired belongings within reach. PO fluids encouraged. Will continue to monitor.
--- NOTE | 2018-11-20 05:22 | NUR ---
Assumed pt. care at 2230. Patient A&Ox4; Swallows meds whole w/o difficulty. Remains cont. B&B. Ambulates independently to bathroom w/ steady gait. Blood sugars WNL. Remains on IVABT; no adverse reactions noted. Triple lumen noted to RUE; flushed w/ NS w/o difficulty. Last BM 11/19/18, per pt. Patient has no c/o pain or discomfort. No s/s of acute distress noted. Patient asleep in bed w/ call light/desired belongings within reach. Po fluids encouraged. Will continue to monitor.
[2018-11-20 07:43] VITALS: BP 128/73
[2018-11-20 09:42] VITALS: BP 128/73
--- NOTE | 2018-11-20 09:50 | NUR ---
DISCHARGE NOTE: KIMBERLY reviewed chart and spoke with nursing. Discharge home is anticipated later today with HH and Home IV abx: ceftriaxone 2 gm IV BID. KIMBERLY notified by [facility] liaison that pt's copay is $165.55/week. KIMBERLY met with pt at bedside to discuss copay and discharge plan. Pt is agreeable with copay and discharge plan. Pt's PCP is Dr. Ryanne Gambino. Pt will need first dose at home this evening. KIMBERLY updated [facility] liaison, who will be onsite to provide education. Pt has PICC line in place. KIMBERLY notified intake at [facility] of anticipated discharge. Contact info for [facility] and [facility] placed in pt's discharge summary. KIMBERLY is following to finalize discharge plan.
--- NOTE | 2018-11-20 12:20 | NUR ---
ASSUMED CARE OF PATIENT THIS MORNING. PATIENT IS A&OX4. SHE GETS UP AD DIANE. SHE HAS A RIGHT UPPER ARM PICC TRIPLE LUMEN AND SHE HAS BEEN RECEIVING IV ANTIBIOTIC THERAPY. NO COMPLAINTS OF PAIN OR DISCOMFORT. SHE WILL BE DISCHARGING THIS AFTERNOON HOME WITH HOME HEALTH. PATIENT IS CURRENTLY SITTING IN ROOM WITH CALL LIGHT WITHIN REACH. SHE CALLS OUT APPROPRIATELY FOR ASSISTANCE.
[2018-11-20] MEDS ORDERED: CEFTRIAXON1 GM/50 ML IV (14:47)
--- NOTE | 2018-11-20 15:16 | NUR ---
PATIENT BEING DISCHARGED HOME WITH HOME HEALTH. PICC LINE LEFT IN. DISCHARGE INSTRUCTIONS REVIEWED WITH PATIENT AND VOLUNTEER TRANSPORT CAME TO TAKE PATIENT TO [facility] FOR DEPARTURE.
--- NOTE | 2018-11-20 15:20 | NUR ---
I AGREE WITH NURSING ASSESSMENT DONE BY AMALIA/HARDEEP.
== END 2018-11-20 15:22 | disposition home health service (06) | DRG 871 ==
LOC: ER 05:46 → EROBS 08:56 → ICU 08:56 → 3W 11-16 17:12 → SICU 11-19 23:05 → ENTRNSPT 11-20 15:06 → EDTRNSPTSTS 11-20 15:21 → SICU 11-20 15:22
PROVIDERS: Emergency Medicine; Nurse Practitioner Acute Care; Specialist; ADMIT Internal Medicine
PROC: 009U3ZX Drainage of Spinal Canal, Percutaneous Approach, Diagnostic (ICD-10-PCS; principal; 2018-11-12)
PROC: 02HV33Z Insertion of Infusion Device into Superior Vena Cava, Percutaneous Approach (ICD-10-PCS; principal; 2018-11-12)
PROC: B01B1ZZ Fluoroscopy of Spinal Cord using Low Osmolar Contrast (ICD-10-PCS; principal; 2018-11-12)
DX: A41.9 Sepsis, unspecified organism (principal); G92 Toxic encephalopathy; G04.2 Bacterial meningoencephalitis and meningomyelitis, not elsewhere classified; N17.9 Acute kidney failure, unspecified; Q01.8 Encephalocele of other sites; G97.82 Other postprocedural complications and disorders of nervous system; G96.0 Cerebrospinal fluid leak; I10 Essential (primary) hypertension; F12.90 Cannabis use, unspecified, uncomplicated; E87.6 Hypokalemia; K21.9 Gastro-esophageal reflux disease without esophagitis; F17.210 Nicotine dependence, cigarettes, uncomplicated; J32.9 Chronic sinusitis, unspecified; D72.823 Leukemoid reaction; E66.01 Morbid (severe) obesity due to excess calories; T38.0X5A Adverse effect of glucocorticoids and synthetic analogues, initial encounter; Z90.49 Acquired absence of other specified parts of digestive tract; Z90.710 Acquired absence of both cervix and uterus; Z88.0 Allergy status to penicillin; Z88.2 Allergy status to sulfonamides; Z88.8 Allergy status to other drugs, medicaments and biological substances; Z83.52 Family history of ear disorders; Z91.048 Other nonmedicinal substance allergy status; Z68.28 Body mass index [BMI] 28.0-28.9, adult; Z79.899 Other long term (current) drug therapy
CPT/HCPCS: 10078; 10879; 15002; 27000; 62110; 62900

== ENCOUNTER → 2020-04-13 | Outpatient (CLI) | payer OTHER ==
[~2020-04-13] MED LIST changes: +CEFTRIAXON1 GM/50 ML IV
== END ==
LOC: SJCVCIMAG 14:20
PROVIDERS: ATTEND Internal Medicine
DX: I08.0 Rheumatic disorders of both mitral and aortic valves (principal); I10 Essential (primary) hypertension; R94.31 Abnormal electrocardiogram [ECG] [EKG]

== ENCOUNTER → 2020-10-14 | Outpatient (CLI) | payer OTHER | LOC: SJCVC 13:11 | PROVIDERS: ATTEND Internal Medicine | DX: Z01.810 Encounter for preprocedural cardiovascular examination (principal); R94.31 Abnormal electrocardiogram [ECG] [EKG]; I38 Endocarditis, valve unspecified; E78.5 Hyperlipidemia, unspecified; E11.9 Type 2 diabetes mellitus without complications; M10.9 Gout, unspecified; I10 Essential (primary) hypertension; J43.9 Emphysema, unspecified; F17.210 Nicotine dependence, cigarettes, uncomplicated; Z98.890 Other specified postprocedural states; Z88.8 Allergy status to other drugs, medicaments and biological substances; Z79.82 Long term (current) use of aspirin; Z79.899 Other long term (current) drug therapy; Z82.49 Family history of ischemic heart disease and other diseases of the circulatory system ==

== ENCOUNTER → 2020-10-15 | Outpatient (CLI) | payer OTHER | LOC: SJCVCIMAG 13:55 | PROVIDERS: ATTEND Internal Medicine | DX: I08.0 Rheumatic disorders of both mitral and aortic valves (principal); I11.9 Hypertensive heart disease without heart failure; R94.31 Abnormal electrocardiogram [ECG] [EKG]; Z79.899 Other long term (current) drug therapy ==

== ENCOUNTER → 2020-11-11 | Outpatient (CLI) | payer OTHER ==
[~2020-11-11] MED LIST changes: +ALLOPURINOL 10100 M1 PO; +ASA81BEC PO; +BENEFIBER PO; +CARAFATE 1 GM TA1 G1 PO; +HYOSCYAMINE0.125 M1 SUBLING; +OMEPRAZOLE40 MG PO
== END ==
LOC: LAB 13:37
PROVIDERS: ATTEND Internal Medicine Gastroenterology
DX: Z01.812 Encounter for preprocedural laboratory examination (principal); Z20.822 Contact with and (suspected) exposure to COVID-19

== ENCOUNTER → 2020-11-16 | Outpatient (CLI) | payer OTHER ==
[~2020-11-16] VITALS: Ht 162.6 cm; Wt 64.9 kg
--- NOTE | 2020-11-18 17:06 | PATH ---
[facility] [place] [address] PATHOLOGY RPT PROCEDURE Name: WILFRIDO JOHNSTON Room #: REG [facility].#: [id number] Admission: 11/16/20 Date of : 54 Discharge: Report #: [id number] Path Case #: [id number] [facility] Accession Number: [id number] . 01 Material submitted: . PART A: small bowel - BIOPSY SMALL BOWEL POLYP PART B: gastrointestinal site - BIOPSY RANDOM GASTRIC PART C: colon - BIOPSY ASCENDING COLON POLYP. Modifiers: ascending PART D: colon - BIOPSY TRANSVERSE COLON POLYP. Modifiers: transverse PART E: rectum - BIOPSY RECTAL POLYP . 01 Clinical history: . EGD ABDOMINAL PAIN, EPIGASTRIC PAIN, GERD, CONSTIPATION POLYPS, DIVERTICULOSIS . 01 Frozen section diagnosis: . . /QMS . 02 Diagnosis: A. Polyp, small bowel polyp, endoscopic biopsy: - Hyperplastic changes. - Negative for villous blunting or increase in intraepithelial lymphocytes. - Negative for dysplasia or malignancy. . B. Gastric mucosa, random gastric R/O H. pylori, endoscopic biopsy: - Moderate reactive gastropathy. - Negative for intestinal metaplasia or atrophy. - Negative for Helicobacter pylori (properly controlled immunohistochemical stain performed). . C. Polyp, ascending colon polyp, endoscopic biopsy: - Tubular adenoma. - Negative for high-grade dysplasia. . D. Polyp, transverse colon polyp, endoscopic biopsy: - Tubular adenoma. - Negative for high-grade dysplasia. . E. Polyp, rectal polyp, endoscopic biopsy: - Hyperplastic polyp. - Negative for dysplasia. (IUV:[place]; 11/18/2020) S 11/18/2020 1255 Local . [address] [address] PATHOLOGY RPT PROCEDURE Name: WILFRIDO JOHNSTON Room #: REG [facility]#: [id number] Admission: 11/16/20 Date of : 54 Discharge: Report #: [id number] Path Case #: [id number] Electronically signed: . Caprice Giron MD, Pathologist NPI- [id number] . 01 Gross description: . A. The specimen is received in formalin, labeled "connor Kent small bowel polyp". Received are two segments of pale reynolds tissue measuring 0.3 cm each in maximum dimensions. The specimen is submitted entirely in cassette A1. . B. The specimen is received in formalin, labeled "Wilfrido Johnston, biopsy random gastric". Received are four segments of pale reynolds tissue ranging in size from 0.3-0.4 cm in maximum dimensions. The specimen is submitted entirely in cassette B1. . C. The specimen is received in formalin, labeled "Wilfrido Johnston, biopsy ascending colon polyp". Received is a segment of pale reynolds tissue measuring 0.4 cm in maximum dimensions. The specimen is submitted entirely in cassette C1. . D. The specimen is received in formalin, labeled "Wilfrido Johnston, biopsy transverse colon polyp". Received are two segments of pale reynolds tissue measuring 0.5 and 0.7 cm in maximum dimensions. The specimen is submitted entirely in cassette D1. . E. The specimen is received in formalin, labeled "Wilfrido Johnston, biopsy rectal polyp". Received are four segments of pale reynolds tissue measuring 0.2 cm each in maximum dimensions. The specimen is submitted entirely in cassette E1. (CAA; 11/17/2020) QAC/QAC 11/17/2020 1100 Local . 02 Pathologist provided ICD-10: K31.9, D12.2, D12.3, K62.1 . 02 CPT . 330907, 889400, 188781, 826160, [id number], [id number] Specimen Comment: A courtesy copy of this report has been sent to [phone], [phone] Specimen Comment: [phone] Specimen Comment: Report sent to / DR MORRISON Performed at: 01 [facility] [address], [place] [id number] MD Bill Benitez MD Phone: [phone] Performed at: 02 [address] [place], [place] [id number] [facility] [address] [place] [address] PATHOLOGY RPT PROCEDURE Name: WILFRIDO JOHNSTON Room #: [facility]#: [id number] Admission: 11/16/20 Date of : 54 Discharge: Report #: [id number] [facility] Case #: [id number] MD Caprice Giron MD Phone: [phone]
== END | disposition home or self-care (01) ==
LOC: GI 07:53
PROVIDERS: ATTEND Internal Medicine Gastroenterology
DX: R10.9 Unspecified abdominal pain (principal); D12.2 Benign neoplasm of ascending colon; D12.3 Benign neoplasm of transverse colon; K62.1 Rectal polyp; K62.89 Other specified diseases of anus and rectum; K57.30 Diverticulosis of large intestine without perforation or abscess without bleeding; K64.8 Other hemorrhoids; K31.7 Polyp of stomach and duodenum; K31.9 Disease of stomach and duodenum, unspecified; R10.13 Epigastric pain; K29.70 Gastritis, unspecified, without bleeding; K44.9 Diaphragmatic hernia without obstruction or gangrene; I10 Essential (primary) hypertension; M10.9 Gout, unspecified; K21.9 Gastro-esophageal reflux disease without esophagitis; F17.210 Nicotine dependence, cigarettes, uncomplicated; Z98.890 Other specified postprocedural states; Z79.899 Other long term (current) drug therapy; Z88.0 Allergy status to penicillin; Z88.2 Allergy status to sulfonamides; Z90.49 Acquired absence of other specified parts of digestive tract
CPT/HCPCS: 62110; 62900